=== PATIENT | male | born 1940 | race Caucasian/White ===

== ENCOUNTER 2024-01-13 16:31 | Emergency (ER) | payer OTHER ==
[~2024-01-13] VITALS: Ht 180.3 cm; Wt 79.4 kg
[~2024-01-13 16:31] MED LIST: AMOCLA875 PO; Artificial Tear15 ML BOTHEYES; BACLOFEN5 M1 PO; BASAGLAR K100 UNIT/1 SC; Crestor20 MG PO; DIGOX125 MC1 PO; ELIQUIS2.5 MG PO; ENTRESTO 24 MG1 EACH PO; FERSU300 PO; FINA5 PO; GABA400 PO; GUAI600T33 PO; HUMALOG KW100 UNIT/1; METO25ER PO; MUPIROCIN1 G1 TOP; Norco 5-325 Ta1 EACH PO; OMEP20ER PO; POTA10T PO; ROBITUSSIN100 MG/5 M PO; TAMS.4ER PO; TORSE20 PO; TRAZ50 PO; VENL37.5 PO; VISBIOME 112.51 EACH PO
[2024-01-13 16:38] VITALS: BP 120/67
[2024-01-13] MEDS ORDERED: Diphth,Pertuss(Acell),Tet Vac 0.5 ML VIAL IM ONE (16:40)
== END 2024-01-13 18:27 | disposition home or self-care (01) ==
LOC: ER 16:31
DX: S61.411A Laceration without foreign body of right hand, initial encounter (principal); W22.8XXA Striking against or struck by other objects, initial encounter
CPT/HCPCS: 12002; 90715; 99283-25

== ENCOUNTER 2024-10-26 10:32 | Observation (INO) | payer OTHER ==
[~2024-10-26] VITALS: Ht 172.7 cm; Wt 72.0 kg
[~2024-10-26 10:32] MED LIST changes: -Artificial Tear15 ML BOTHEYES; -BACLOFEN5 M1 PO; -ELIQUIS2.5 MG PO; -ENTRESTO 24 MG1 EACH PO; -FERSU300 PO; -FINA5 PO; -GABA400 PO; -OMEP20ER PO; -POTA10T PO; -TAMS.4ER PO; -TORSE20 PO; -TRAZ50 PO; -VENL37.5 PO
[2024-10-26 11:39] LABS: BASOPHILS ABSOLUTE AUTO 0.03 K/mm3 (0.00-0.23); BASOPHILS PERCENT AUTO 0 % (0-2); EOSINOPHILS ABSOLUTE AUTO 0.06 K/mm3 (0.00-0.68); EOSINOPHILS PERCENT AUTO 1 % (0-6); Hematocrit 37.0 % (37.0-53.0); Hemoglobin 12.8 g/dL (13.5-17.5); IMMATURE GRAN ABSOLUTE AUTO 0.03 K/mm3 (0.00-0.10); IMMATURE GRAN PERCENT AUTO 0 % (0-1); LYMPHOCYTES ABSOLUTE AUTO 1.13 K/mm3 (0.84-5.20); LYMPHOCYTES PERCENT AUTO 14 % (21-46); MONOCYTES ABSOLUTE AUTO 1.02 K/mm3 (0.16-1.47); MONOCYTES PERCENT AUTO 13 % (4-13); Mean Corpuscular HGB Conc 34.6 g/dL (31.5-36.5); Mean Corpuscular Volume 88 fL (80-100); NEUTROPHILS ABSOLUTE AUTO 5.73 K/mm3 (1.96-9.15); NEUTROPHILS PERCENT AUTO 72 % (41-73); NRBC ABSOLUTE 0.00 K/mm3 (0.00-0.02); NRBC Auto 0.0 /100 WBC (0.0-0.2); Platelet Count 239 K/mm3 (150-400); RDW Coefficient Variation 13.1 % (11.7-14.2); RDW Standard Deviation 42.3 fL (35.1-46.3)
[2024-10-26 11:57] LABS: Alanine Aminotransfer (ALT/SGP 21.0 U/L (12-78); Albumin, Blood 3.2 g/dL (3.4-5.0); Albumin/Globulin Ratio 0.8 (0.8-1.8); Anion Gap 13.0 mmol/L (3-11); Aspartate Aminotrans (AST/SGOT 19.0 U/L (12-37); Bilirubin, Total 0.5 mg/dL (0.1-1.0); Blood Urea Nitrogen 46.0 mg/dL (8-24); CO2, Blood 27.0 mmol/L (21-32); Calcium, Blood 8.5 mg/dL (8.5-10.1); Chloride, Blood 99.0 mmol/L (98-108); Creatinine, Blood 1.48 mg/dL (0.60-1.20); Globulin, Blood 4.1 g/dL (2.2-4.0); Glucose, Blood 245.0 mg/dL (70-99); Potassium, Blood 3.9 mmol/L (3.5-5.5); Sodium, Blood 135.0 mmol/L (136-145); Total Protein, Blood 7.3 g/dL (6.4-8.2)
[2024-10-26 17:19] LABS: Thyroid Stimulating Hormone 3.050 uIU/mL (0.360-4.800)
[2024-10-26] MEDS ORDERED: HYDROcodone 5-APAP 325 TAB PO PRN (17:20)
--- NOTE | 2024-10-26 18:53 | NUR ---
PALLIATIVE CARE VISIT: CONSULT RECEIVED FOR POLST/AD. NO POLST ON FILE. POLST ON FILE WITH POLST REGISTRY STATES DNR, SELECTIVE TREATMENT. CURRENT CODE STATUS IS FULL CODE. MET WITH PT AND EDUCATED HIM ON DNR VS CPR, RISKS AND BENEFITS OF CPR. PT STATES HE DOES NOT WANT TO BE A DNR ANY LONGER "MY SITUATION HAS CHANGED". PT AGREEABLE TO COMPLETING A NEW POLST TO BE SENT TO REGISTRY. SPOKE TO DAUGHTER LORENZA AND GAVE HER UPDATE.
[2024-10-26] MEDS ORDERED: Enoxaparin 80 MG/0.8 ML SYR SC SCH (19:00)
--- NOTE | 2024-10-26 19:22 | NUR ---
ARRIVAL TO UNIT REPORT RECIEVED FROM REINA JOAQUIN 183. PT ARRIVED AT 1845 VIA GURNEY AND ON RA. PT ABLE TO TRANSFR FROM GURNEY TO BED WITH MINIMAL ASSISTANCE, TOLERATED WELL. PT ORIENTED TO ROOM AND CALL LIGHT.
[2024-10-26 20:06] VITALS: BP 126/65
[2024-10-26] MEDS ORDERED: Insulin Glargine-Yfgn 100 Unit/mL 3 ML SYR SC SCH (21:00)
[2024-10-27 00:22] VITALS: BP 133/73
[2024-10-27 04:00] VITALS: BP 126/66
[2024-10-27 04:39] LABS: BASOPHILS ABSOLUTE AUTO 0.04 K/mm3 (0.00-0.23); BASOPHILS PERCENT AUTO 1 % (0-2); EOSINOPHILS ABSOLUTE AUTO 0.10 K/mm3 (0.00-0.68); EOSINOPHILS PERCENT AUTO 1 % (0-6); Hematocrit 38.3 % (37.0-53.0); Hemoglobin 13.4 g/dL (13.5-17.5); IMMATURE GRAN ABSOLUTE AUTO 0.03 K/mm3 (0.00-0.10); IMMATURE GRAN PERCENT AUTO 0 % (0-1); LYMPHOCYTES ABSOLUTE AUTO 1.45 K/mm3 (0.84-5.20); LYMPHOCYTES PERCENT AUTO 20 % (21-46); MONOCYTES ABSOLUTE AUTO 1.19 K/mm3 (0.16-1.47); MONOCYTES PERCENT AUTO 16 % (4-13); Mean Corpuscular HGB Conc 35.0 g/dL (31.5-36.5); Mean Corpuscular Volume 89 fL (80-100); NEUTROPHILS ABSOLUTE AUTO 4.52 K/mm3 (1.96-9.15); NEUTROPHILS PERCENT AUTO 62 % (41-73); NRBC ABSOLUTE 0.00 K/mm3 (0.00-0.02); NRBC Auto 0.0 /100 WBC (0.0-0.2); Platelet Count 231 K/mm3 (150-400); RDW Coefficient Variation 13.1 % (11.7-14.2); RDW Standard Deviation 42.5 fL (35.1-46.3)
[2024-10-27 05:13] LABS: Alanine Aminotransfer (ALT/SGP 20.0 U/L (12-78); Albumin, Blood 3.1 g/dL (3.4-5.0); Albumin/Globulin Ratio 0.7 (0.8-1.8); Anion Gap 9.0 mmol/L (3-11); Aspartate Aminotrans (AST/SGOT 16.0 U/L (12-37); Bilirubin, Total 0.5 mg/dL (0.1-1.0); Blood Urea Nitrogen 38.0 mg/dL (8-24); CO2, Blood 29.0 mmol/L (21-32); Calcium, Blood 8.7 mg/dL (8.5-10.1); Chloride, Blood 102.0 mmol/L (98-108); Creatinine, Blood 1.32 mg/dL (0.60-1.20); Globulin, Blood 4.2 g/dL (2.2-4.0); Glucose, Blood 176.0 mg/dL (70-99); Potassium, Blood 3.5 mmol/L (3.5-5.5); Sodium, Blood 136.0 mmol/L (136-145); Total Protein, Blood 7.3 g/dL (6.4-8.2)
--- NOTE | 2024-10-27 06:04 | NUR ---
SHIFT SUMMARY PT HAS TOLERATED SHIFT WITH NO SIGNIFICANT EVENTS OVERNIGHT. PT ADMITTED FOR OBSERVATION OF BRADYCARDIA AFTER BEING SEEN IN ED FOR HIP PAIN AFTER A FALL. PT IS ALERT AND ORIENTED AND HAS BEEN ABLE TO REST THROUGH SHIFT OVERNIGHT. PT HAD HIP PAIN TOWARDS BEGINNING OF SHIFT BUT HAS SINCE NOT HAD ANY COMPLAINTS OF PAIN. PT IS CURRENTLY RESTING COMFORTABLY IN ROOM. CALL LIGHT WITHIN REACH.
[2024-10-27] MEDS ORDERED: Insulin Human Lispro 100 Units/ML 3ML Syringe SC SCH (07:30)
[2024-10-27] MEDS ORDERED: Enoxaparin 40 MG/0.4 ML SYR SC SCH (09:00)
[2024-10-27] MEDS ORDERED: BUPRENORPHINE1 EAC9 TD (09:20)
[2024-10-27] MEDS ORDERED: ASPERFLEX LIDOC15 GM TOP (09:21)
[2024-10-27] MEDS ORDERED: LIDOCAINE1 EACH TOP (09:21)
[2024-10-27] MEDS ORDERED: METO25ER PO (13:26)
[2024-10-27] MEDS ORDERED: ELIQUIS2.5 MG PO (13:41)
[2024-10-27] MEDS ORDERED: Artificial Tear15 ML BOTHEYES (13:42)
[2024-10-27] MEDS ORDERED: JARDIANCE10 MG PO (13:42)
[2024-10-27] MEDS ORDERED: BACLOFEN5 M1 PO (13:42)
[2024-10-27] MEDS ORDERED: FERSU300 PO (13:42)
[2024-10-27] MEDS ORDERED: FINA5 PO (13:43)
[2024-10-27] MEDS ORDERED: GABA300 PO (13:43)
[2024-10-27] MEDS ORDERED: POTA10T PO (13:43)
[2024-10-27] MEDS ORDERED: OMEP20ER PO (13:43)
[2024-10-27] MEDS ORDERED: ENTRESTO 24 MG1 EACH PO (13:44)
[2024-10-27] MEDS ORDERED: ROSUVASTATIN CA20 MG PO (13:44)
[2024-10-27] MEDS ORDERED: SITA50T2 PO (13:44)
[2024-10-27] MEDS ORDERED: TRAZ50 PO (13:45)
[2024-10-27] MEDS ORDERED: VENL37.5 PO (13:45)
[2024-10-27] MEDS ORDERED: TORSE20 PO (13:45)
[2024-10-27] MEDS ORDERED: TAMS.4ER PO (13:45)
== END 2024-10-27 15:10 | disposition home or self-care (01) ==
LOC: ER 10:32 → PCU 10:33 → ERHOLD 10:33 → PCU 18:03
PROVIDERS: Student in an Organized Health Care Education/Training Program; ADMIT Hospitalist
DX: R00.1 Bradycardia, unspecified (principal); M25.551 Pain in right hip; I48.91 Unspecified atrial fibrillation; I25.10 Atherosclerotic heart disease of native coronary artery without angina pectoris; I50.22 Chronic systolic (congestive) heart failure; I13.0 Hypertensive heart and chronic kidney disease with heart failure and stage 1 through stage 4 chronic kidney disease, or unspecified chronic kidney disease; E78.5 Hyperlipidemia, unspecified; E11.51 Type 2 diabetes mellitus with diabetic peripheral angiopathy without gangrene; E11.22 Type 2 diabetes mellitus with diabetic chronic kidney disease; E11.65 Type 2 diabetes mellitus with hyperglycemia; N18.2 Chronic kidney disease, stage 2 (mild); N17.9 Acute kidney failure, unspecified; N40.0 Benign prostatic hyperplasia without lower urinary tract symptoms; K21.9 Gastro-esophageal reflux disease without esophagitis; Z95.1 Presence of aortocoronary bypass graft; Z87.891 Personal history of nicotine dependence; Z79.01 Long term (current) use of anticoagulants; Z79.899 Other long term (current) drug therapy; Z88.5 Allergy status to narcotic agent; W18.30XA Fall on same level, unspecified, initial encounter
CPT/HCPCS: 36415; 70450; 71046; 72192; 73502; 80053; 80162; 82947; 83036; 84443; 85025; 93005; 93010; 93246; 96360; 96361; 96372; 97116; 97161; 99285-25; A9270; G0378; J1650; J1815; J7120

== ENCOUNTER 2024-12-10 20:05 | Inpatient (IN) | payer OTHER ==
[~2024-12-10] VITALS: Ht 172.7 cm; Wt 78.7 kg
[~2024-12-10 20:05] MED LIST changes: +ASPERFLEX LIDOC15 GM TOP; +Artificial Tear15 ML BOTHEYES; +BACLOFEN5 M1 PO; +BUPRENORPHINE1 EAC9 TD; +ELIQUIS2.5 MG PO; +ENTRESTO 24 MG1 EACH PO; +FERSU300 PO; +FINA5 PO; +GABA300 PO; +JARDIANCE10 MG PO; +LIDOCAINE1 EACH TOP; +OMEP20ER PO; +POTA10T PO; +ROSUVASTATIN CA20 MG PO; +SITA50T2 PO; +TAMS.4ER PO; +TORSE20 PO; +TRAZ50 PO; +VENL37.5 PO
[2024-12-10 20:37] LABS: BASOPHILS ABSOLUTE AUTO 0.04 K/mm3 (0.00-0.23); BASOPHILS PERCENT AUTO 0 % (0-2); EOSINOPHILS ABSOLUTE AUTO 0.01 K/mm3 (0.00-0.68); EOSINOPHILS PERCENT AUTO 0 % (0-6); Hematocrit 36.7 % (37.0-53.0); Hemoglobin 12.6 g/dL (13.5-17.5); IMMATURE GRAN ABSOLUTE AUTO 0.09 K/mm3 (0.00-0.10); IMMATURE GRAN PERCENT AUTO 1 % (0-1); LYMPHOCYTES ABSOLUTE AUTO 0.74 K/mm3 (0.84-5.20); LYMPHOCYTES PERCENT AUTO 5 % (21-46); MONOCYTES ABSOLUTE AUTO 1.92 K/mm3 (0.16-1.47); MONOCYTES PERCENT AUTO 14 % (4-13); Mean Corpuscular HGB Conc 34.3 g/dL (31.5-36.5); Mean Corpuscular Volume 88 fL (80-100); NEUTROPHILS ABSOLUTE AUTO 11.21 K/mm3 (1.96-9.15); NEUTROPHILS PERCENT AUTO 80 % (41-73); NRBC ABSOLUTE 0.00 K/mm3 (0.00-0.02); NRBC Auto 0.0 /100 WBC (0.0-0.2); Platelet Count 233 K/mm3 (150-400); RDW Coefficient Variation 13.7 % (11.7-14.2); RDW Standard Deviation 44.2 fL (35.1-46.3)
[2024-12-10 21:02] LABS: Magnesium, Blood 2.6 mg/dL (1.6-2.4)
[2024-12-10 21:07] LABS: pH Blood Venous 7.40 (7.34-7.37)
[2024-12-10 21:09] LABS: Alanine Aminotransfer (ALT/SGP 271 U/L (12-78); Albumin, Blood 2.3 g/dL (3.4-5.0); Albumin/Globulin Ratio 0.5 (0.8-1.8); Anion Gap 13 mmol/L (3-11); Aspartate Aminotrans (AST/SGOT 174 U/L (12-37); Bilirubin, Total 6.0 mg/dL (0.1-1.0); Blood Urea Nitrogen 53 mg/dL (8-24); CO2, Blood 23 mmol/L (21-32); Calcium, Blood 8.1 mg/dL (8.5-10.1); Chloride, Blood 100 mmol/L (98-108); Creatinine, Blood 2.50 mg/dL (0.60-1.20); Ethanol (Alcohol), Blood, Med <3 mg/dL; Globulin, Blood 4.6 g/dL (2.2-4.0); Glucose, Blood 241 mg/dL (70-99); Potassium, Blood 3.7 mmol/L (3.5-5.5); Sodium, Blood 132 mmol/L (136-145); Total Protein, Blood 6.9 g/dL (6.4-8.2)
[2024-12-10] MEDS ORDERED: NS 1,000 ML IV SCH (21:25)
[2024-12-10 21:30] LABS: Prothrombin Time Results 11.9 Sec (9.7-11.5)
[2024-12-10] MEDS ORDERED: Piperacillin/Tazobactam Sod 4.5 GM in NS 100 ML IV ONE (22:55)
[2024-12-10] MEDS ORDERED: Vancomycin (Pharmacy Consult) IV PRN (23:15)
[2024-12-11] MEDS ORDERED: NS 1,000 ML IV ONE (01:41)
[2024-12-11] MEDS ORDERED: NS 1,000 ML IV SCH (01:45)
[2024-12-11] MEDS ORDERED: Vancomycin (Pharmacy Consult) IV SCH (05:10)
[2024-12-11] MEDS ORDERED: Ondansetron HCl 2 MG / ML 2ML Vial IV PRN (05:10)
[2024-12-11] MEDS ORDERED: Piperacillin/Tazobactam Sod 3.375 GM in NS 100 ML IV SCH (08:00)
[2024-12-11] MEDS ORDERED: Lactobacil 2-S.Thermo-Bifido 1 1 Cap PO SCH (09:00)
[2024-12-11 09:02] LABS: U Amphetamine Screen Not Detected; U Barbituate Screen Not Detected; U Benzodiazapine Screen Not Detected; U Buprenorphine Screen Not Detected; U Cannabinoids Screen DETECTED; U Cocaine Screen Not Detected; U Methadone Screen Not Detected; U Methamphetamine Screen Not Detected; U Opiates Screen DETECTED; U Oxycodone Screen Not Detected; U Phencyclidine Screen Not Detected
[2024-12-11 10:01] VITALS: BP 116/56
[2024-12-11 10:03] LABS: Alanine Aminotransfer (ALT/SGP 247.0 U/L (12-78); Albumin, Blood 2.0 g/dL (3.4-5.0); Albumin/Globulin Ratio 0.5 (0.8-1.8); Anion Gap 12.0 mmol/L (3-11); Aspartate Aminotrans (AST/SGOT 216.0 U/L (12-37); Bilirubin, Total 7.9 mg/dL (0.1-1.0); Blood Urea Nitrogen 44.0 mg/dL (8-24); CO2, Blood 21.0 mmol/L (21-32); Calcium, Blood 7.6 mg/dL (8.5-10.1); Chloride, Blood 107.0 mmol/L (98-108); Creatinine, Blood 2.07 mg/dL (0.60-1.20); Globulin, Blood 4.3 g/dL (2.2-4.0); Glucose, Blood 142.0 mg/dL (70-99); Potassium, Blood 3.5 mmol/L (3.5-5.5); Sodium, Blood 136.0 mmol/L (136-145); Total Protein, Blood 6.3 g/dL (6.4-8.2)
[2024-12-11] MEDS ORDERED: Morphine Sulfate 4 MG/1 ML Injection IV PRN (11:20)
[2024-12-11 12:15] VITALS: BP 138/78
[2024-12-11] MEDS ORDERED: ANECREAM515 GM TOP (13:19)
[2024-12-11] MEDS ORDERED: NALOXONE H0.4 MG/1 M IM (13:22)
[2024-12-11] MEDS ORDERED: Voltaren100 GM TOP (13:25)
[2024-12-11] MEDS ORDERED: LIDO700A20 TOP (13:27)
[2024-12-11] MEDS ORDERED: FINA5 PO (13:36)
[2024-12-11] MEDS ORDERED: LISINOPRIL2.5 MG PO (13:37)
[2024-12-11] MEDS ORDERED: ELIQUIS2.5 MG PO (13:41)
[2024-12-11] MEDS ORDERED: HYDROCODONE-AC1 EA19 PO ×2 (13:44→13:45)
--- NOTE | 2024-12-11 15:19 | NUR ---
PALLIATIVE CARE CONSULT: CONSULT RECEIVED TO CLARIFY CODE STATUS WITH PT. REVIEWED PRIOR POLST WHICH WAS DNR/SELECTIVE TREATMENT. PRIOR VISIT PT WANTED TO BE A FULL CODE BUT DID NOT COMPLETE A POLST. THIS VIST PT IS AWAKE AND ABLE TO HAVE MEANINGFUL CONVERSATION AND MAKE NEEDS KNOWN. EDUCATED PT ON POLST CHOICES. PT DOES NOT WANT CPR STATING "I DON'T WANT TO END UP WITH FRACTURED RIBS". PT IS AGREEABLE TO INTUBATION, SHOCK AND MEDICATIONS. PT AGREEABLE TO COMPLETING NEW POLST. POLST COMPLETED PER HIS CHOICES. CALLED DR. MEJIA AND ORDER RECEIVED TO CHANGE CODE STATUS TO LIMITED, NO CPR. PT COMPLETED POLST. AWAITING MD TO SIGN.
--- NOTE | 2024-12-11 16:07 | NUR ---
PROVIDER UPDATE DR. LINDQUIST TO ROOM TO UPDATE POC. PT TO HAVE SURGERY TOMORROW. PT CAN HAVE CLEAR LIQUIDS UNTIL [address] PT IS AGREEABLE.
[2024-12-11 16:23] VITALS: BP 134/97
--- NOTE | 2024-12-11 18:32 | NUR ---
SHIFT SUMMARY PT ADMITTED TO UNIT THIS AM AT APPROX 1000. PT ALERT AND ORIENTED AND ABLE TO MAKE NEEDS KNOWN AND USE CALL LIGHT APPROPRIATELY. PT KEPT NPO AFTER ARRIVAL UNITL DR. LINDQUIST EVALUATED PT AT 1600 AND STS PT CAN BE ON CLEAR LIQUID DIET UNTIL 0400 AM, FOR PROCEDURE ON 12/12. PT AWARE. LR RUNNING ORDERED AT 100ML/HR. ZOSYN ALSO INFUSING PER EMAR. PT REQUIRED ONE PRN DOSE OF IV MORPHINE FOR ABDOMINAL/ R. RIB PAIN W/ GOOD EFFECT. PT LUNGS CLEAR AND IS ON ROOM AIR W/ ADEQUATE SATURATION. PT ON TELE. AFIB RATE OF 70-90S OBSERVED. BP STABLE W/ MAPS GREATER THAN 65. PT AFEBRILE. PT HAD SECOND EPISODE OF RETENTION AND STRAIGHT CATH WAS PERFORMED- PROCEDURE WAS PAINFUL FOR PT, ORDERS FROM DR. MEJIA TO LEAVE CATH IN PLACE, PT IS AGREEABLE. 14FR COUDE BURGESS PATENT AND DRAINING TO GRAVITY. PT HAD 2 SMALL BM SMEARS DURING SHIFT. NEW ATTENDS APPLIED. 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 PT HAS FULL DENTURES. CALL LIGHT W/ IN REACH. BED ALARM ON AND BED IN LOWEST, LOCKED POSITION. PLAN OF CARE ONGOING.
[2024-12-11 19:56] VITALS: BP 118/55
--- NOTE | 2024-12-11 20:24 | NUR ---
MD NOTIFICATION PT BLOOD SUGAR TAKEN BY TECH AND WAS 309 AT 1918. NICO NOW WAS 449. PT HAD EATEN MIROSLAVA AND HAS LR RUNNING AT 100. WANTS NICO AT 2230 AND IF STILL HIGH HE WILL PUT PT ON MEDICAL SHORT ACTING SLIDING SCALE.
--- NOTE | 2024-12-11 22:40 | NUR ---
MD NOTIFICATION BLOOD SUGAR AT 2230 WAS 283. PUTTING IN SLIDING SCALE ORDERS FOR Q 6 ACCUCK. WANTS FIRST DOSE OF SLIDIING SCALE TO BE GIVEN NOW, THEN NICO AT 0000.
[2024-12-11] MEDS ORDERED: Insulin Regular 100 UNIT/ML 10ML Vial SC SCH (23:00)
[2024-12-11 23:08] VITALS: BP 138/73
[2024-12-12] VITALS (19 sets, daily range): BP systolic 99–149; BP diastolic 48–81
[2024-12-12 03:36] LABS: BASOPHILS ABSOLUTE AUTO 0.03 K/mm3 (0.00-0.23); BASOPHILS PERCENT AUTO 0 % (0-2); EOSINOPHILS ABSOLUTE AUTO 0.18 K/mm3 (0.00-0.68); EOSINOPHILS PERCENT AUTO 3 % (0-6); Hematocrit 33.3 % (37.0-53.0); Hemoglobin 11.4 g/dL (13.5-17.5); IMMATURE GRAN ABSOLUTE AUTO 0.02 K/mm3 (0.00-0.10); IMMATURE GRAN PERCENT AUTO 0 % (0-1); LYMPHOCYTES ABSOLUTE AUTO 0.63 K/mm3 (0.84-5.20); LYMPHOCYTES PERCENT AUTO 9 % (21-46); MONOCYTES ABSOLUTE AUTO 0.93 K/mm3 (0.16-1.47); MONOCYTES PERCENT AUTO 13 % (4-13); Mean Corpuscular HGB Conc 34.2 g/dL (31.5-36.5); Mean Corpuscular Volume 89 fL (80-100); NEUTROPHILS ABSOLUTE AUTO 5.16 K/mm3 (1.96-9.15); NEUTROPHILS PERCENT AUTO 74 % (41-73); NRBC ABSOLUTE 0.00 K/mm3 (0.00-0.02); NRBC Auto 0.0 /100 WBC (0.0-0.2); Platelet Count 205 K/mm3 (150-400); RDW Coefficient Variation 13.6 % (11.7-14.2); RDW Standard Deviation 44.3 fL (35.1-46.3)
[2024-12-12 03:59] LABS: Alanine Aminotransfer (ALT/SGP 203.0 U/L (12-78); Albumin, Blood 1.9 g/dL (3.4-5.0); Albumin/Globulin Ratio 0.5 (0.8-1.8); Anion Gap 10.0 mmol/L (3-11); Aspartate Aminotrans (AST/SGOT 126.0 U/L (12-37); Bilirubin, Total 3.5 mg/dL (0.1-1.0); Blood Urea Nitrogen 35.0 mg/dL (8-24); CO2, Blood 22.0 mmol/L (21-32); Calcium, Blood 7.9 mg/dL (8.5-10.1); Chloride, Blood 106.0 mmol/L (98-108); Creatinine, Blood 1.8 mg/dL (0.60-1.20); Globulin, Blood 3.9 g/dL (2.2-4.0); Glucose, Blood 137.0 mg/dL (70-99); Magnesium, Blood 2.4 mg/dL (1.6-2.4); Potassium, Blood 3.2 mmol/L (3.5-5.5); Sodium, Blood 135.0 mmol/L (136-145); Total Protein, Blood 5.8 g/dL (6.4-8.2)
[2024-12-12 04:31] LABS: Vancomycin, Random 13.6 ug/mL
--- NOTE | 2024-12-12 05:57 | NUR ---
END OF SHIFT REPORT VSS OVERNIGHT. PT IN CONTROLLED AFIB ON MONITOR AND MAINTAINED O SATS GREATER THAN 0% ON ROOM AIR. PT C/O PAIN TO RIBS 8/10 PAIN AT HOUR SLEEP AND PRN 5 MG OXYCODONE GIVEN AFTER CLEARING W PHARMACIST OK TO ADMINISTER. PAIN IMPROVED AFTER BUT PT DID NOT LIKE THE WAY IT MADE HIM FEEL OVER SEDATED. PT HAD ELEVATED BLOOD SUGARS AND DR RODRIGUES ORDERED SLIDING SCALE REGULAR INSULIN AND 3 UNITS GIVEN AND SUGARS LOWERED. 6 AM ACCUCK 107. PT LR INFUSION COMLETED. PT NPO ORDERED AT 4 AM BUT PT HAD NO CLEAR INTAKE SINCE MIDNIGHT FOR LAP COLEEN 12/12. PT REFUSED ANY STAFF ASSISTANCE W PILLWOW PLACEMENT FOR TURNING IN BED. PT ABLE TO TURN IN BED BY HIMSELF.
[2024-12-12] MEDS ORDERED: Bupivacaine 0.5% HCl 5 MG/ML 30MLVIAL ONE (11:35)
--- NOTE | 2024-12-12 11:38 | NUR ---
PT TRANSPORTED TO [facility]. AGREES WITH PLANNED SURGERY. LUNGS WITH CRACKLE RIGHT BASE, ANESTHESIA NOTIFIED. History, Chart, Medications and Allergies reviewed before start of procedure.
[2024-12-12] MEDS ORDERED: Dexamethasone Sod Phos 10 MG/ML 1ML VIAL ONE (11:50)
[2024-12-12] MEDS ORDERED: FentaNYL Citrate 50 MCG/ML 2 ML Injection ONE ×2 (11:50→14:15)
[2024-12-12] MEDS ORDERED: Rocuronium Bromide 10 MG/ML 5ML Injection IV ONE ×2 (11:50→13:26)
[2024-12-12] MEDS ORDERED: Ondansetron HCl 2 MG / ML 2ML Vial ONE (11:50)
[2024-12-12] MEDS ORDERED: Metoprolol Tartrate 5 ML IV ONE (12:09)
[2024-12-12] MEDS ORDERED: Phenylephrine HCl 100 MCG/ML-NS 10MLSYR (1MG/10ML) ONE (12:25)
[2024-12-12] MEDS ORDERED: HYDROmorphone HCl/Pf 1MG SYR IV PRN (13:00)
[2024-12-12] MEDS ORDERED: FentaNYL Citrate 50 MCG/ML 2 ML Injection IV PRN ×3 (13:00→13:10)
[2024-12-12] MEDS ORDERED: Prochlorperazine Edisylate 10 mg Vial IV PRN (13:00)
[2024-12-12] MEDS ORDERED: Sugammadex Sodium 200 MG/2ML SDV (100 MG/ML) ONE (14:04)
[2024-12-12] MEDS ORDERED: Insulin Regular 100 UNIT/ML 10ML Vial SC SCH (16:30)
--- NOTE | 2024-12-12 17:05 | NUR ---
SHIFT SUMMARY PT A&Ox4, CALLS AND COMMUNICATES NEEDS APPROPRIATELY, [employer] [place]. BP STABLE, AFIB 80's, DENIES CP/PRESSURE. SpO2> 92% RA, DENIES SOB. BURGESS CATH IN PLACE DRAINING DENA URINE TO GRAVITY. NO BM THIS SHIFT. PT OUT OF ROOM FOR PROCEDURE FROM APPROXIMATELY 1115 TO 1515. VSS STABLE POST OP. 4 LAP INCISIONS WNL. MANAGED PTs PAIN PER EMAR. PT REMAINED BEDREST, Q2 TURNS PROVIDED, PT REPOSITIONS SELF IN BED AT TIMES. NO OTHER EVENTS, WILL REPORT TO ONCOMING RN.
[2024-12-12 17:09] LABS: HEPATITIS A ANTIBODY, IGM Negative (Negative); HEPATITIS C AB CIA INTERP Negative (Negative); HEPATITIS C ANTIBODY CIA INDEX 0.05 IV
[2024-12-13 03:40] VITALS: BP 116/60
[2024-12-13 03:46] LABS: BASOPHILS ABSOLUTE AUTO 0.01 K/mm3 (0.00-0.23); BASOPHILS PERCENT AUTO 0 % (0-2); EOSINOPHILS ABSOLUTE AUTO 0.00 K/mm3 (0.00-0.68); EOSINOPHILS PERCENT AUTO 0 % (0-6); Hematocrit 32.7 % (37.0-53.0); Hemoglobin 11.3 g/dL (13.5-17.5); IMMATURE GRAN ABSOLUTE AUTO 0.03 K/mm3 (0.00-0.10); IMMATURE GRAN PERCENT AUTO 0 % (0-1); LYMPHOCYTES ABSOLUTE AUTO 0.43 K/mm3 (0.84-5.20); LYMPHOCYTES PERCENT AUTO 5 % (21-46); MONOCYTES ABSOLUTE AUTO 0.72 K/mm3 (0.16-1.47); MONOCYTES PERCENT AUTO 9 % (4-13); Mean Corpuscular HGB Conc 34.6 g/dL (31.5-36.5); Mean Corpuscular Volume 90 fL (80-100); NEUTROPHILS ABSOLUTE AUTO 6.79 K/mm3 (1.96-9.15); NEUTROPHILS PERCENT AUTO 85 % (41-73); NRBC ABSOLUTE 0.00 K/mm3 (0.00-0.02); NRBC Auto 0.0 /100 WBC (0.0-0.2); Platelet Count 225 K/mm3 (150-400); RDW Coefficient Variation 13.6 % (11.7-14.2); RDW Standard Deviation 45.1 fL (35.1-46.3)
[2024-12-13 04:10] LABS: Alanine Aminotransfer (ALT/SGP 291.0 U/L (12-78); Albumin, Blood 1.9 g/dL (3.4-5.0); Albumin/Globulin Ratio 0.5 (0.8-1.8); Anion Gap 12.0 mmol/L (3-11); Aspartate Aminotrans (AST/SGOT 356.0 U/L (12-37); Bilirubin, Total 8.5 mg/dL (0.1-1.0); Blood Urea Nitrogen 32.0 mg/dL (8-24); CO2, Blood 20.0 mmol/L (21-32); Calcium, Blood 8.0 mg/dL (8.5-10.1); Chloride, Blood 105.0 mmol/L (98-108); Creatinine, Blood 1.72 mg/dL (0.60-1.20); Globulin, Blood 3.9 g/dL (2.2-4.0); Glucose, Blood 212.0 mg/dL (70-99); Potassium, Blood 3.9 mmol/L (3.5-5.5); Sodium, Blood 133.0 mmol/L (136-145); Total Protein, Blood 5.8 g/dL (6.4-8.2)
--- NOTE | 2024-12-13 04:54 | NUR ---
SHIFT SUMMARY PT A&O X4. ABLE TO MAKE NEEDS KNOWN. FORGETFUL AT TIMES. AFIB WITH HR 80S. BP STABLE. AFEBRILE. ON RA WITH SPO2 >92%. 4 LAP COLEEN SITES WNL, DERMABOND IN PLACE WITH MILD BRUISING. TENDER TO PALPATION. SKIN/SCLERA JAUNDICED. ASSISTING PT WITH REPOSITIONING. BURGESS CATHETER IN PLACE FOR RETENTION. NO ACUTE CHANGES OVERNIGHT. BED IN LOWEST POSITION AND CALL LIGHT WITHIN REACH. THIS RN WILL REPORT TO ONCOMING DAYSHIFT RN.
[2024-12-13 09:32] VITALS: BP 106/72
[2024-12-13] MEDS ORDERED: Misc. Opth BOTHEYES PRN (10:25)
[2024-12-13 11:47] VITALS: BP 131/61
[2024-12-13] MEDS ORDERED: HYDROcodone 5-APAP 325 TAB PO PRN (12:55)
--- NOTE | 2024-12-13 14:13 | NUR ---
TRANSFER NOTE: A/O X4, PLEASANT AND COOPERATIVE WITH CARE, ABLE TO COMMUNICATE NEEDS, USES CALL LIGHT APPROPRIATELY, [place] W/HEARING AIDS AT BEDSIDE. AFIB, HR 80'S, STATUS CHANGED FROM PCU W/TELE TO SURGICAL NO TELE THIS SHIFT. BURGESS IN PLACE FOR RETENTION, PATIENT AND DRAINING TO GRAVITY, URINE IS DENA COLORED. MILD ABD DISTENTION, 4 INCISIONS ACROSS UPPER ABD CLOSED WITH SKIN ADHESIVE AND OPEN TO AIR, PT ENDORSES LOCALIZED PAIN TO SURGICAL SITE AND LEFT RIBS FROM FALL PRIOR TO ADMISSION, REFUSES Q2 TURNING AND STATES THAT HE IS INDEPENDENT WITH BED MOBILITY, NO BOWEL MOVEMENT THIS SHIFT, BOWEL CARE PER EMAR. LEFT BKA WITH PROSTHETIC AT BEDSIDE. REPORT GIVEN TO DARIEL HEIN AT 1345. PT LEFT UNIT ON BED WITH BELONGINGS TO ROOM 220. FAMILY NOTIFIED BY EMANI Esqueda
[2024-12-13 15:57] VITALS: BP 140/80
[2024-12-13 19:24] VITALS: BP 111/57
--- NOTE | 2024-12-13 19:46 | NUR ---
SHIFT SUMMARY SINCE ARRIVAL TO UNIT, PT IS UNCHANGED. ABD SOFT. LAP SITES WNL. TOLERATING DIET, PASSING GAS. DANGLING AT BEDSIDE. STRUGGLING SLIGHTLY w/ PAIN MANAGEMENT.
[2024-12-14 05:15] VITALS: BP 108/59
--- NOTE | 2024-12-14 06:43 | NUR ---
SHIFT SUMMARY POD 2 LAP COLEEN. NO ACUTE CHANGES. 4 LAP SITES C/D/I. PAIN MANAGED PER EMAR. PT COMMUNICATES NEEDS EFFECTIVELY. BURGESS CATHETER REMOVE. PLAN FOR DISCHARGE TODAY. CARE PLAN ONGOING.
[2024-12-14 07:19] VITALS: BP 139/67
[2024-12-14 09:25] LABS: Alanine Aminotransfer (ALT/SGP 416.0 U/L (12-78); Albumin, Blood 2.1 g/dL (3.4-5.0); Albumin/Globulin Ratio 0.5 (0.8-1.8); Anion Gap 11.0 mmol/L (3-11); Aspartate Aminotrans (AST/SGOT 504.0 U/L (12-37); Bilirubin, Total 10.4 mg/dL (0.1-1.0); Blood Urea Nitrogen 35.0 mg/dL (8-24); CO2, Blood 22.0 mmol/L (21-32); Calcium, Blood 8.2 mg/dL (8.5-10.1); Chloride, Blood 103.0 mmol/L (98-108); Creatinine, Blood 1.64 mg/dL (0.60-1.20); Globulin, Blood 4.0 g/dL (2.2-4.0); Glucose, Blood 172.0 mg/dL (70-99); Potassium, Blood 3.8 mmol/L (3.5-5.5); Sodium, Blood 132.0 mmol/L (136-145); Total Protein, Blood 6.1 g/dL (6.4-8.2)
[2024-12-14] MEDS ORDERED: Magnesium Hydroxide Conc 10 ML UDC PO PRN (11:15)
[2024-12-14] MEDS ORDERED: Polyethylene Glycol 3350 17 gm PO SCH (12:00)
[2024-12-14 15:02] VITALS: BP 131/72
[2024-12-14 17:18] LABS: Alanine Aminotransfer (ALT/SGP 443.0 U/L (12-78); Albumin, Blood 2.1 g/dL (3.4-5.0); Albumin/Globulin Ratio 0.5 (0.8-1.8); Anion Gap 9.0 mmol/L (3-11); Aspartate Aminotrans (AST/SGOT 525.0 U/L (12-37); Bilirubin, Direct 9.3 mg/dL (0.0-0.3); Bilirubin, Total 11.1 mg/dL (0.1-1.0); Blood Urea Nitrogen 34.0 mg/dL (8-24); CO2, Blood 24.0 mmol/L (21-32); Calcium, Blood 8.6 mg/dL (8.5-10.1); Chloride, Blood 101.0 mmol/L (98-108); Creatinine, Blood 1.58 mg/dL (0.60-1.20); Globulin, Blood 4.2 g/dL (2.2-4.0); Glucose, Blood 218.0 mg/dL (70-99); Potassium, Blood 4.0 mmol/L (3.5-5.5); Sodium, Blood 130.0 mmol/L (136-145); Total Protein, Blood 6.3 g/dL (6.4-8.2)
--- NOTE | 2024-12-14 18:27 | NUR ---
shift summary pt up in chair. Worked with PT today. Denies complaints. Will continue to monitor.
[2024-12-14 19:14] VITALS: BP 112/58
[2024-12-14] MEDS ORDERED: Insulin Glargine,Hum.Rec.Anlog 100 UNIT/ML 3MLSYR SC SCH (21:00)
[2024-12-14] MEDS ORDERED: Insulin Human Lispro 100 Units/ML 3ML Syringe SC SCH (21:00)
[2024-12-15 03:03] VITALS: BP 128/67
[2024-12-15 05:08] LABS: BASOPHILS ABSOLUTE AUTO 0.04 K/mm3 (0.00-0.23); BASOPHILS PERCENT AUTO 1 % (0-2); EOSINOPHILS ABSOLUTE AUTO 0.15 K/mm3 (0.00-0.68); EOSINOPHILS PERCENT AUTO 2 % (0-6); Hematocrit 29.4 % (37.0-53.0); Hemoglobin 10.2 g/dL (13.5-17.5); IMMATURE GRAN ABSOLUTE AUTO 0.05 K/mm3 (0.00-0.10); IMMATURE GRAN PERCENT AUTO 1 % (0-1); LYMPHOCYTES ABSOLUTE AUTO 0.70 K/mm3 (0.84-5.20); LYMPHOCYTES PERCENT AUTO 10 % (21-46); MONOCYTES ABSOLUTE AUTO 0.92 K/mm3 (0.16-1.47); MONOCYTES PERCENT AUTO 14 % (4-13); Mean Corpuscular HGB Conc 34.7 g/dL (31.5-36.5); Mean Corpuscular Volume 90 fL (80-100); NEUTROPHILS ABSOLUTE AUTO 4.88 K/mm3 (1.96-9.15); NEUTROPHILS PERCENT AUTO 73 % (41-73); NRBC ABSOLUTE 0.00 K/mm3 (0.00-0.02); NRBC Auto 0.0 /100 WBC (0.0-0.2); Platelet Count 226 K/mm3 (150-400); RDW Coefficient Variation 13.7 % (11.7-14.2); RDW Standard Deviation 44.9 fL (35.1-46.3)
--- NOTE | 2024-12-15 05:29 | NUR ---
SHIFT SUMMARY TANJA WAS ALERT AND FULLY ORIENTED AT START OF SHIFT. PAIN TO ABD MODERATELY WELL MANAGED, LAP SITES DOCK SUPERINTENDENT AND CDI. PT NOTED TO BE JAUNDICED, LIVER ENZYME [facility] NOTED TO BE CONSISTENTLY TRENDING UP. HOSPITALIST CONTACTED ABOUT THIS WITH NO CHANGES TO PT ORDERS RECIEVED. PT DENIES SOB, NAUSEA, AND CHEST PAIN NO ACUTE EVENTS TONIGHT OR NOTED CHANGES TO PT CONDITION.
[2024-12-15 05:55] LABS: Alanine Aminotransfer (ALT/SGP 429.0 U/L (12-78); Albumin, Blood 1.9 g/dL (3.4-5.0); Albumin/Globulin Ratio 0.5 (0.8-1.8); Anion Gap 10.0 mmol/L (3-11); Aspartate Aminotrans (AST/SGOT 484.0 U/L (12-37); Bilirubin, Total 10.4 mg/dL (0.1-1.0); Blood Urea Nitrogen 30.0 mg/dL (8-24); CO2, Blood 22.0 mmol/L (21-32); Calcium, Blood 7.9 mg/dL (8.5-10.1); Chloride, Blood 105.0 mmol/L (98-108); Creatinine, Blood 1.39 mg/dL (0.60-1.20); Globulin, Blood 3.7 g/dL (2.2-4.0); Glucose, Blood 216.0 mg/dL (70-99); Potassium, Blood 3.7 mmol/L (3.5-5.5); Sodium, Blood 133.0 mmol/L (136-145); Total Protein, Blood 5.6 g/dL (6.4-8.2)
[2024-12-15 07:17] VITALS: BP 140/71
--- NOTE | 2024-12-15 11:26 | NUR ---
DC INSTRUCT REVIEWED. STATED UNDERSTANDING. DISCHARGED TO POV VIA W/C.
== END 2024-12-15 11:27 | disposition home or self-care (01) | DRG 417 ==
LOC: ER 20:05 → ICUE 20:06 → PCU 20:06 → SURS 12-11 14:53
PROVIDERS: Emergency Medicine; Family Medicine; Student in an Organized Health Care Education/Training Program; Surgery; ADMIT Student in an Organized Health Care Education/Training Program
PROC: 3E03329 Introduction of Other Anti-infective into Peripheral Vein, Percutaneous Approach (ICD-10-PCS; 2024-12-10)
PROC: 0T9B70Z Drainage of Bladder with Drainage Device, Via Natural or Artificial Opening (ICD-10-PCS; 2024-12-11)
PROC: 8E0W4CZ Robotic Assisted Procedure of Trunk Region, Percutaneous Endoscopic Approach (ICD-10-PCS; 2024-12-12)
PROC: BF50200 Other Imaging of Bile Ducts using Fluorescing Agent, Indocyanine Green Dye, Intraoperative (ICD-10-PCS; 2024-12-12)
PROC: 0FT44ZZ Resection of Gallbladder, Percutaneous Endoscopic Approach (ICD-10-PCS; principal; 2024-12-12 10:30)
DX: K80.00 Calculus of gallbladder with acute cholecystitis without obstruction (principal); K72.00 Acute and subacute hepatic failure without coma; N17.9 Acute kidney failure, unspecified; I48.20 Chronic atrial fibrillation, unspecified; I50.22 Chronic systolic (congestive) heart failure; I13.0 Hypertensive heart and chronic kidney disease with heart failure and stage 1 through stage 4 chronic kidney disease, or unspecified chronic kidney disease; K82.A1 Gangrene of gallbladder in cholecystitis; N18.2 Chronic kidney disease, stage 2 (mild); E11.22 Type 2 diabetes mellitus with diabetic chronic kidney disease; E11.51 Type 2 diabetes mellitus with diabetic peripheral angiopathy without gangrene; N40.0 Benign prostatic hyperplasia without lower urinary tract symptoms; K21.9 Gastro-esophageal reflux disease without esophagitis; G47.00 Insomnia, unspecified; I25.10 Atherosclerotic heart disease of native coronary artery without angina pectoris; K76.89 Other specified diseases of liver; E11.65 Type 2 diabetes mellitus with hyperglycemia; F99 Mental disorder, not otherwise specified; Z89.512 Acquired absence of left leg below knee; Z79.01 Long term (current) use of anticoagulants; Z88.5 Allergy status to narcotic agent; Z79.84 Long term (current) use of oral hypoglycemic drugs; Z95.1 Presence of aortocoronary bypass graft; Z87.891 Personal history of nicotine dependence
CPT/HCPCS: 36415; 51701; 51798; 70450; 71045; 74177; 74181; 76705; 80053; 80074; 80202; 80320; 82140; 82248; 82330; 82803; 82947; 83605; 83690; 83735; 85025; 85610; 85730; 87040; 88304; 93005; 93010; 93306; 94762; 96365; 96366; 96367; 96375; 97161; 97530; 99285-25; A9270; G0378; G0480; J0612; J1100; J1171; J1815; J2270; J2371; J2405; J2543; J2704; J3010; J3373; J7030; J7040; J7050; J7120; Q9967

== ENCOUNTER 2024-12-21 10:24 | Emergency (ER) | payer OTHER ==
[~2024-12-21] VITALS: Ht 172.7 cm; Wt 74.8 kg
[~2024-12-21 10:24] MED LIST changes: +ANECREAM515 GM TOP; +HYDROCODONE-AC1 EA19 PO; +LIDO700A20 TOP; +LISINOPRIL2.5 MG PO; +NALOXONE H0.4 MG/1 M IM; +Voltaren100 GM TOP
[2024-12-21 11:21] LABS: BASOPHILS ABSOLUTE AUTO 0.04 K/mm3 (0.00-0.23); BASOPHILS PERCENT AUTO 1 % (0-2); EOSINOPHILS ABSOLUTE AUTO 0.10 K/mm3 (0.00-0.68); EOSINOPHILS PERCENT AUTO 1 % (0-6); Hematocrit 29.8 % (37.0-53.0); Hemoglobin 10.0 g/dL (13.5-17.5); IMMATURE GRAN ABSOLUTE AUTO 0.10 K/mm3 (0.00-0.10); IMMATURE GRAN PERCENT AUTO 1 % (0-1); LYMPHOCYTES ABSOLUTE AUTO 0.66 K/mm3 (0.84-5.20); LYMPHOCYTES PERCENT AUTO 8 % (21-46); MONOCYTES ABSOLUTE AUTO 1.05 K/mm3 (0.16-1.47); MONOCYTES PERCENT AUTO 13 % (4-13); Mean Corpuscular HGB Conc 33.6 g/dL (31.5-36.5); Mean Corpuscular Volume 93 fL (80-100); NEUTROPHILS ABSOLUTE AUTO 6.09 K/mm3 (1.96-9.15); NEUTROPHILS PERCENT AUTO 76 % (41-73); NRBC ABSOLUTE 0.00 K/mm3 (0.00-0.02); NRBC Auto 0.0 /100 WBC (0.0-0.2); Platelet Count 342 K/mm3 (150-400); RDW Coefficient Variation 15.6 % (11.7-14.2); RDW Standard Deviation 51.9 fL (35.1-46.3)
[2024-12-21 11:54] LABS: Alanine Aminotransfer (ALT/SGP 387.0 U/L (12-78); Albumin, Blood 2.3 g/dL (3.4-5.0); Albumin/Globulin Ratio 0.5 (0.8-1.8); Anion Gap 12.0 mmol/L (3-11); Aspartate Aminotrans (AST/SGOT 390.0 U/L (12-37); Bilirubin, Total 18.1 mg/dL (0.1-1.0); Blood Urea Nitrogen 36.0 mg/dL (8-24); CO2, Blood 23.0 mmol/L (21-32); Calcium, Blood 8.5 mg/dL (8.5-10.1); Chloride, Blood 98.0 mmol/L (98-108); Creatinine, Blood 1.67 mg/dL (0.60-1.20); Globulin, Blood 4.7 g/dL (2.2-4.0); Glucose, Blood 169.0 mg/dL (70-99); Potassium, Blood 4.7 mmol/L (3.5-5.5); Sodium, Blood 128.0 mmol/L (136-145); Total Protein, Blood 7.0 g/dL (6.4-8.2)
[2024-12-21] MEDS ORDERED: HYDROmorphone HCl/Pf 1MG SYR IV ONE ×2 (14:10→15:50)
[2024-12-21] MEDS ORDERED: Ondansetron HCl 2 MG / ML 2ML Vial IV ONE (14:10)
[2024-12-21] MEDS ORDERED: HYDROmorphone HCl/Pf 1MG SYR IV PRN (19:35)
[2024-12-21 21:45] VITALS: BP 103/54
== END 2024-12-21 21:58 | disposition short-term general hospital (02) ==
LOC: ER 10:24
PROVIDERS: Emergency Medicine
DX: K72.90 Hepatic failure, unspecified without coma (principal); I13.0 Hypertensive heart and chronic kidney disease with heart failure and stage 1 through stage 4 chronic kidney disease, or unspecified chronic kidney disease; E11.22 Type 2 diabetes mellitus with diabetic chronic kidney disease; N18.9 Chronic kidney disease, unspecified; I48.91 Unspecified atrial fibrillation; E78.5 Hyperlipidemia, unspecified; I50.20 Unspecified systolic (congestive) heart failure; K21.9 Gastro-esophageal reflux disease without esophagitis; Z88.5 Allergy status to narcotic agent; Z79.899 Other long term (current) drug therapy; Z79.01 Long term (current) use of anticoagulants
CPT/HCPCS: 76705; 80053; 83690; 85025; 96374; 96375; 96376; 99285-25; J1171; J2405